=== PATIENT | male | born 1965 | race African-American/Black ===

== ENCOUNTER 2023-10-26 12:23 | Emergency (ER) | payer OTHER ==
[~2023-10-26] VITALS: Ht 175.3 cm; Wt 102.2 kg
[2023-10-26 13:00] LABS: Urine Bacteria None Seen /hpf (None Seen); Urine WBC None Seen /hpf (0 - 3)
[2023-10-26 13:07] LABS: Urine Blood Negative /uL (Negative); Urine Clarity Clear (Clear); Urine Color Light-Yellow (Yellow); Urine Protein, UAD Negative (Negative); Urine Urobilinogen Normal (Negative)
[2023-10-26 13:13] LABS: Basophils # (auto) 0 10 ^3/uL (0-0.2); Basophils % (auto) 0.6 % (0.0-2.0); Eosinophils # (auto) 0.1 10 ^3/uL (0-0.8); Eosinophils % (auto) 2.2 % (0.0-7.0); Hematocrit 43.2 % (41.0-53.0); Lymphocytes # (auto) 1.5 10 ^3/uL (0.4-5.4); Mean Corpuscular Hemoglobin 29.6 pg (28.0-32.0); Mean Corpuscular Hgb Conc. 32.5 g/dL (32.0-36.0); Monocytes # (auto) 0.6 10 ^3/uL (0-1.3); Monocytes % (auto) 9.4 % (0.0-12.0); Neutrophils # (auto) 3.7 10 ^3/uL (1.6-8.6); Neutrophils % (auto) 61.8 % (37.0-80.0); Nucleated Red Blood Cells % 0.3 %; Red Blood Cells 4.75 10^6/uL (4.5-5.90); Red Cell Distribution Width 13.7 % (11.8-14.3); White Blood Cell 5.9 10^3/uL (4.4-10.8)
[2023-10-26 13:22] LABS: Chloride 103 mmol/L (98-107); Potassium 4.3 mmol/L (3.5-5.1); Sodium 135 mmol/L (136-145)
[2023-10-26 13:23] LABS: Anion Gap 9 (5-15); Calcium 9.1 mg/dL (8.5-10.1); Carbon Dioxide 23 mmol/L (20-30)
[2023-10-26 13:28] LABS: BUN/Creatinine Ratio 13.4 (10.0-20.0); Blood Urea Nitrogen 13 mg/dL (9-23); Glucose 334 mg/dL (74-106)
[2023-10-26] MEDS: ASPirin 81 mg TAB PO ONE (16:52)
[2023-10-26 16:53] VITALS: BP 155/77; PULSE 64; RESP 18; TEMP 98; O2SAT 98
== END 2023-10-26 16:53 | disposition home or self-care (01) ==
LOC: ER 12:23 → EDBD 12:23 → ER 16:53
DX: G45.9 Transient cerebral ischemic attack, unspecified (principal); I10 Essential (primary) hypertension; E11.9 Type 2 diabetes mellitus without complications; E78.5 Hyperlipidemia, unspecified; Z98.890 Other specified postprocedural states
CPT/HCPCS: 36415; 70450; 80048; 81001; 85025